=== PATIENT | male | born 1975 | race Caucasian/White ===

== ENCOUNTER 2023-08-03 14:53 | Outpatient (CLI) | payer OTHER, SELFPAY | END 2023-08-03 14:54 | disposition home or self-care (01) | PROVIDERS: PCP Family Medicine; Visit Provider Family Medicine | DX: Z00.00 Encounter for general adult medical examination without abnormal findings (principal); E78.00 Pure hypercholesterolemia, unspecified; Z12.5 Encounter for screening for malignant neoplasm of prostate | CPT/HCPCS: 80053; 80061; G0103 ==

== ENCOUNTER 2023-09-14 11:12 | Outpatient (CLI) | payer OTHER, SELFPAY ==
--- NOTE | 2023-09-14 12:45 | W.ANESCHARGE ---
Anesthesia Charges Start Date/Time Anesthesia Start Date: 09/14/23 Anesthesia Start Time: 12:14 Stop Date/Time Anesthesia Stop Date: 09/14/23 Anesthesia Stop Time: 12:42
--- NOTE | 2023-09-14 12:45 | W.ANESCHARGE ---
Anesthesia Charges Start Date/Time Anesthesia Start Date: 09/14/23 Anesthesia Start Time: 12:14 Stop Date/Time Anesthesia Stop Date: 09/14/23 Anesthesia Stop Time: 12:42
== END 2023-09-14 11:13 | disposition home or self-care (01) ==
LOC: OP CLINIC 11:12
PROVIDERS: PCP Family Medicine; Visit Provider Internal Medicine
DX: Z12.11 Encounter for screening for malignant neoplasm of colon (principal); K64.8 Other hemorrhoids; K57.30 Diverticulosis of large intestine without perforation or abscess without bleeding
CPT/HCPCS: 00812; 45378; J2704

== ENCOUNTER 2025-02-06 07:36 | Outpatient (CLI) | payer OTHER, SELFPAY | END 2025-02-06 07:37 | disposition home or self-care (01) | PROVIDERS: PCP Family Medicine; Visit Provider Family Medicine | DX: I71.21 Aneurysm of the ascending aorta, without rupture (principal) | CPT/HCPCS: 80048; 80061; 93306; G0103 ==

== ENCOUNTER 2025-03-03 08:08 | Outpatient (CLI) | payer OTHER, SELFPAY ==
--- NOTE | 2025-03-03 08:00 | CRLHL7_ITS ---
For Patients: As a result of the Century Cures Act, medical imaging exams and procedure reports are released immediately into your electronic medical record. You may view this report before your referring provider. If you have questions, please contact your health care provider. Indication: CHECKING ANEURYSM SEEN ON CT CALCIUM SCORING Technique: Postcontrast CT chest 75 cc Isovue 370 intravenous contrast Please note that all CT scans at this facility use dose modulation, iterative reconstruction, and/or weight-based dosing when appropriate to reduce radiation dose to as low as reasonably achievable. Comparison: 11/18/2024 Findings: Ascending aorta measures 4.6 x 4.7 cm. No adenopathy. Visualized thyroid is normal. Upper abdomen is unremarkable. 7 millimeter calcified granuloma within the left lower lobe. No infiltrate or edema. No effusion or pneumothorax. Impression: 4.6 x 4.7 cm ascending aortic aneurysm. Please note that all CT scans at this facility use dose modulation, iterative reconstruction, and/or weight-based dosing when appropriate to reduce radiation dose to as low as reasonably achievable. Dictated by Ritchie Nava MD @ 03/03/2025 3:47:00 PM (Electronically Signed)
== END 2025-03-03 08:09 | disposition home or self-care (01) ==
LOC: CT 08:09
PROVIDERS: PCP Family Medicine; Visit Provider Family Medicine
DX: I71.21 Aneurysm of the ascending aorta, without rupture (principal); Q23.81 Bicuspid aortic valve
CPT/HCPCS: 71260; Q9967